=== PATIENT | male | born 2000 | race Two or more races ===

== ENCOUNTER 2020-04-01 01:31 | Emergency (ER) | payer SELFPAY ==
[2020-04-01] MEDS ORDERED: Lidocaine/EPINEPHrine/Tetracaine Soln 1 ML TOP STA (02:00)
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
[2020-04-01] MEDS ORDERED: Diphtheria,Pertussis(Acell),Tetanus Vaccine 0.5 ML Syringe IM ONE (02:11)
[2020-04-01] MEDS ORDERED: Lidocaine/EPINEPHrine/Tetracaine Soln 1 ML ONE (02:23)
[2020-04-01] MEDS ORDERED: Lidocaine 1% with EPINEPHrine 1:100,000 20 ML MDV INJECT ONE (02:25)
[2020-04-01] MEDS ORDERED: Bupivacaine 0.5% 10 ML SDV INJECT ONE (02:25)
== END 2020-04-01 03:05 | disposition home or self-care (01) ==
LOC: JD.ED 01:31
DX: S01.511A Laceration without foreign body of lip, initial encounter (principal); K21.9 Gastro-esophageal reflux disease without esophagitis; Z23 Encounter for immunization; F17.210 Nicotine dependence, cigarettes, uncomplicated; Y04.0XXA Assault by unarmed brawl or fight, initial encounter
CPT/HCPCS: 12011; 90471; 90715; 99282; 99283